=== PATIENT | male | born 1990 | race African-American/Black ===

== ENCOUNTER 2021-02-16 18:07 | Observation (INO) ==
[2021-02-16] MEDS ORDERED: TISSUE ADHESIVE 1 EACH APPLICATOR TOP ONE (20:15)
[2021-02-16] MEDS ORDERED: LACTATED RINGERS 500 ML IV STA (20:28)
[2021-02-16] MEDS ORDERED: ONDANSETRON 4 MG/2 ML VIAL IV STA (20:28)
[2021-02-16 21:08] LABS: Basophils % 0.2 % (0.0-0.8); Eosinophils % 0.1 % (0.00-10.9); Hemoglobin 12.2 GM/DL (14.0-18.0); Immature Granulocytes % 1.3 %; Immature Granulocytes Absolute 0.33 #; Lymphocytes # 1.5 10*3/uL (1.4-4.0); Lymphocytes % 5.8 % (21.2-54.2); Mean Corpuscular HGB Conc 30.5 GM/DL (32-36); Mean Corpuscular Volume 92.6 FL (87-102); Mean Platelet Volume 9.6 FL (9.6-12.0); Monocytes % 4.5 % (1.7-12.7); Neutrophils % 88.1 % (38.7-73.9); Platelet Count 505 T/CUMM (130-400); Red Blood Count 4.32 MC/CUMM (3.8-5.5); Red Cell Distribution Width 12.5 % (9.3-17.3)
[2021-02-16 21:31] LABS: Lymphocytes 8 % (20-55); Platelet Estimate Increased; Segmented Neutrophils 88 % (50-85); Total Cells Counted 100
[2021-02-16 21:35] LABS: Albumin 3.6 G/DL (3.4-5.0); Bilirubin,Total 0.4 MG/DL (0.20-1.00); Calcium 8.7 MG/DL (8.5-10.1); Osmolality,Calculated 287.8 MOS/KG (273-304); Potassium 3.3 MMOL/L (3.5-5.1)
[2021-02-16] MEDS ORDERED: KETOROLAC 30 MG/1 ML VIAL IV STA (22:04)
[2021-02-16 22:12] LABS: Bacteria,Urine Occasional /HPF (Few); Bilirubin,Urine Negative (Negative); Blood, Urine Moderate mg/dL (Negative); Glucose,Urine (UA) Negative (Negative); Ketones,Urine Negative (Negative); Mucus,Urine Occasional /LPF (Occasional); Nitrite,Urine Negative (Negative); Protein,Urine 100 MG/DL; Urine Appearance CLEAR (Clear); Urine Color Yellow (Yellow); Urine Specific Gravity 1.047 (1.001-1.035); Urine Urobilinogen < 2.0 EU/DL (<2.0)
[2021-02-16 22:54] LABS: Barbiturates Screen,Urine Negative (Negative); Benzodiazepines Screen,Urine Negative (Negative); Cannabinoid Screen,Urine Positive (Negative); Opiate Screen,Urine Negative (Negative); Phencyclidine Screen,Urine Negative (Negative)
[2021-02-17] MEDS ORDERED: SODIUM CHLORIDE 0.9% 1,000 ML IV SCH (02:16)
[2021-02-17] MEDS ORDERED: KETOROLAC 15 MG/1 ML VIAL IV PRN (02:16)
[2021-02-17] MEDS ORDERED: ACETAMINOPHEN 325 MG TABLET PO PRN (02:16)
[2021-02-17] MEDS ORDERED: ONDANSETRON 4 MG/2 ML VIAL IV PRN (02:16)
[2021-02-17] MEDS: ALBUTEROL/IPRATROPIUM 3 ML NEB RESP TX SCH ×4 (02:20→13:07)
[2021-02-17] MEDS ORDERED: ALBUTEROL/IPRATROPIUM 3 ML NEB RESP TX ONE (02:30)
[2021-02-17 05:06] LABS: Basophils % 0.2 % (0.0-0.8); Eosinophils % 0.2 % (0.00-10.9); Hematocrit 34.7 VOL% (42.0-52.0); Hemoglobin 10.6 GM/DL (14.0-18.0); Immature Granulocytes % 0.6 %; Immature Granulocytes Absolute 0.06 #; Lymphocytes # 1.9 10*3/uL (1.4-4.0); Lymphocytes % 18.8 % (21.2-54.2); Mean Corpuscular HGB Conc 30.5 GM/DL (32-36); Mean Corpuscular Volume 92.8 FL (87-102); Mean Platelet Volume 9.3 FL (9.6-12.0); Monocytes % 8.2 % (1.7-12.7); Platelet Count 433 T/CUMM (130-400); Red Blood Count 3.74 MC/CUMM (3.8-5.5); Red Cell Distribution Width 12.5 % (9.3-17.3); White Blood Count 9.9 T/CUMM (4-12)
[2021-02-17 05:31] LABS: Hypochromasia 1+; Lymphocytes 12 % (20-55); Microcytosis 1+; Platelet Estimate Adequate; Segmented Neutrophils 85 % (50-85); Total Cells Counted 100
[2021-02-17 05:36] LABS: Albumin 3.2 G/DL (3.4-5.0); Bilirubin,Total 0.6 MG/DL (0.20-1.00); Calcium 8.7 MG/DL (8.5-10.1); Osmolality,Calculated 280.3 MOS/KG (273-304); Potassium 3.4 MMOL/L (3.5-5.1); Total Protein 6.7 G/DL (6.4-8.2)
[2021-02-17] MEDS ORDERED: PANTOPRAZOLE 40 MG TABLET PO SCH (09:00)
[2021-02-17] MEDS ORDERED: POTASSIUM CHLORIDE 20 MEQ TABLET PO ONE (11:30)
[2021-02-17 11:45] VITALS: BP 117/70
== END 2021-02-17 16:30 | disposition home or self-care (01) ==
LOC: N.ED 18:07 → N.EDINP 18:07 → N.3E 02-17 02:08
PROVIDERS: ADMIT Surgery; ATTEND Surgery